=== PATIENT | female | born 1970 ===

== ENCOUNTER → 2019-02-22 | Outpatient (REF) ==
--- NOTE | 2019-02-22 18:23 | REP ---
Lumbar spine series: Three views: History: Degenerative disc disease. No comparison lumbar imaging. Findings: There is mild vascular calcification in a normal caliber aorta in this relatively young patient. A L5 transverse processes are somewhat sacralized bilaterally, left more so than right. There is sclerosis and a pseudoarthrosis between hypertrophied transverse process of L5 on the left and the first sacral segment. There are six lumbar-type vertebrae. Degenerative disc disease changes are seen with narrowing and spur formation at L4-5 and L3-4. Discogenic spurring is also noted L2-3. Psoas margins are symmetric. Sacrum and SI joints are intact. No bony destructive lesion is seen. There is mild facet hypertrophy bilaterally at L4-5. Impression: Partial sacralization of L5. Degenerative disc and facet changes at L4-5. Mild degenerative disc disease changes are seen at L3-4 and L2-3 as well. Electronically Signed by Guru Ortiz MD 02/23/2019 08:02 A
--- NOTE | 2019-02-22 18:24 | REP ---
Right knee series: Five views. History: Degenerative disc disease. Findings: Five views of the right knee show a tiny calcific deposit adjacent to the superior pole of the patella at the quadriceps tendon insertion. Bones, joints, and soft tissues are otherwise unremarkable. Impression: Tiny calcification at the quadriceps tendon insertion on the superior pole of the patella. Otherwise negative right knee radiographs. Electronically Signed by Guru Ortiz MD 02/23/2019 08:02 A
== END ==
LOC: M SMT 15:00
PROVIDERS: ATTEND Internal Medicine
DX: M51.36 Other intervertebral disc degeneration, lumbar region (principal)